=== PATIENT | female | born 1975 | race Caucasian/White ===

== ENCOUNTER → 2020-07-28 | Outpatient (CLI) | payer BC, OTHER | LOC: HEART CORB 09:23 | DX: R06.00 Dyspnea, unspecified (principal); R07.2 Precordial pain | CPT/HCPCS: 78452; A9502; J2785 ==

== ENCOUNTER → 2020-11-19 | Outpatient (CLI) | payer BC, OTHER | LOC: HEART CORB 08:00 | DX: R00.2 Palpitations (principal); I47.2 Ventricular tachycardia | CPT/HCPCS: 93306 ==